=== PATIENT | male | born 1965 | race Caucasian/White ===

== ENCOUNTER 2024-07-23 14:53 | Outpatient (REF) | payer MEDICAID, SELFPAY ==
--- OUTSIDE RECORDS SUMMARY | 2024-07-23 15:59 | XMS_ITS | Encounter Summary ---
Author Organization [facility] [employer] Address [address] [facility] 7t [place] [address] Care Team Providers Care Signing Agent Name Role Phone Vinh Braden CNP Primary Care Provider [phone] Reason for Visit * Reason Onset Date Comments CHART PREP 07/22/2024 Encounter Details Date Type Department Care Team ([facility] st Contact Info) Description 07/22/2024 Telephone [facility] [address] [place], [place] [phone] Vinh Braden CNP [address] [place], [place] [phone] CHART PREP Social History Tobacco Use Types Packs/Day Years Used Date Smoking Tobacco: Former Cigarettes Smokeless Tobacco: Never Comments:Pt smoked for 45 ye ars and quit 3 years ago Alcohol Use Standard Drinks/Week Comments Yes 1 (1 standard drink = 0.6 oz pure alcohol) 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 I have evelia jose m 04/16/[address] you li ve. Do you have problems with any of the following? None of the above 04/16/2024 Food Insecurity Answer Date Recorded Within the past 12 months, y ou worried that your food would run out before you got money to buy more: Never True 04/16/2024 Within the past 12 months,th e food you bought just didn't last and you didn't have enough money to get more: Never True Transportation Answer Date Recorded In the past 12 months, has l ack of transportation kept you from medical appts, meetings, work or from getting things needed for daily living? No 04/16/2024 Utilities Answer Date Recorded In the past 12 months, has t he electric, gas, oil or water [employer] threatened to shut off services in your home? No 04/16/2024 Internet Access Answer Date Recorded Internet Access Q1 Yes 04/16/2024 Internet Access Q2 Not on file 04/16/2024 Sex and Gender Information Value Date Recorded Sex Assigned at Male 04/22/2024 8:34 AM EST Legal Sex Male 1:52 PM EST Gender Identity Male 04/22/2024 8:34 AM EST Sexual Orientation Straight 04/22/2024 9: 29 AM EST documented as of this encounter Miscellaneous Notes * Telephone Encounter - Leonard Plummer MA - 07/22/2024 11:59 AM EDT Chart Prep Labs: not done 05/02/24 T/C to pt for a reminder of labs pt okay Images: not applicable Referrals: not applicable Vaccines due: not applicable Screenings: not applicable Overdue care gaps: SBIRT, PHQ-9, HAROON-7, and Disability screen documented in this encounter Plan of Treatment Not on file documented as of this encounter Visit Diagnoses Not on filedocumented in this encounter Care Teams Signing Agent Relationship Specialty Start Date End Date Vinh Braden CNP [address] [place] [id number] PCP - General Family Medicine 05/02/24 documented as of this encounter
--- OUTSIDE RECORDS SUMMARY | 2024-07-23 15:59 | XMS_ITS | Encounter Summary ---
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 I have evelia salguero 04/16/[address] you li [...] t he electric, gas, oil or water company threatened to shut off services in your [...] AM EST documented as of this encounter Plan of Treatment Not on file documented as of this encounter Visit Diagnoses Not on filedocumented in this encounter Care Teams Mammalogy Teacher Relationship Specialty Start Date End Date Vinh Braden CNP [address] [place] [id number] PCP - General Family Medicine 05/02/24 documented as of this encounter
--- OUTSIDE RECORDS SUMMARY | 2024-07-23 15:59 | XMS_ITS | Encounter Summary ---
Author Organization [employer] Address [address] [facility] 7t [place] [address] Care Team Providers Care Government Affairs Researcher Name Role Phone Vinh Braden CNP Primary Care Provider [phone] Reason for Referral * PFT (Routine) - Pending Review Specialty Diagnoses / Procedures Referred By Gerber morales Referred To Contact Diagnoses Chronic obstructive pulmonary disease, unspecified COPD type (CMS/HCC) Procedures Pulmonary Function Test Vinh Braden CNP [address] [place] [address] Phone: tel: fax: Referral ID Status Reason Start Date Expiration Date V isits Requested Visits Authorized [id number] Pending Review 07/23/2024 07/23/2025 1 1 Reason for Visit * Reason Comments Follow-up Encounter Details Date Type Department Care Team ([facility] st Contact Info) Description 07/23/2024 3:30 PM EDT Office Visit 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 Housing Stability Answer [...] AM EST documented as of this encounter Last Filed Vital Signs Vital Sign Reading Time Taken Comments Blood Pressure 113/70 07/23/2024 3:38 PM EDT Pulse 84 07/23/2024 3:38 PM EDT Temperature 36.5 ??C (97.7 ??F) 07/23/2024 3:38 PM ED T Respiratory Rate 21 07/23/2024 3:38 PM EDT Oxygen Saturation - - Inhaled Oxygen Concentration - - Weight 62.4 kg (137 lb 9.6 oz) 07/23/2024 3:38 P M EDT Height 177.8 cm (5' 10 ) 07/23/2024 3:38 PM EDT Body Mass Index 19.74 07/23/2024 3:38 PM EDT documented in this encounter Plan of Treatment Scheduled Orders Name Type Priority Associated Diagnoses Orde r Schedule [id number] Lab Routine Chronic obstructive pulmonary disease, unspecified COPD type (CMS/HCC) Expected: 07/23/2024 (Approximate), Expires: 07/23/2025 Pulmonary Function Test PFT Routine Chronic obstructive pulmonary disease, unspecified COPD type (CMS/HCC) Expected: 07/23/2024, Expires: 01/23/2025 documented as of this encounter Visit Diagnoses Diagnosis Chronic obstructive pulmonary disease, unspecified COPD type (CMS/HCC)- Primary documented in this encounter Care Teams Government Affairs Researcher Relationship Specialty Start Date End Date Vinh Braden CNP [address] [place] [id number] PCP - General Family Medicine 05/02/24 documented as of this encounter
--- OUTSIDE RECORDS SUMMARY | 2024-07-23 15:59 | XMS_ITS | Clinical Summary ---
Author Organization [employer] Address [address] [facility] 7[address] [place] [address] Care Team Providers Care Harness Preparer Name Role Phone Vinh Braden LEE ANN Primary Care Provider [phone] Allergies No known active allergies Medications Eliquis 5 MG tablet Take 1 tablet by mouth 2 times daily. 10/05/19 24 Active aspirin 81 MG EC tablet Take 81 mg by mouth Once per day. 06/27/19 18 Active Farxiga 10 MG Take 1 tablet by mouth Once per day. 03/05/20 24 Active Inspra 25 MG tablet Take 1 tablet by mouth Once per day. 01/23/20 24 Active metoprolol succinate XL (Toprol-XL) 50 MG 24 hr tablet Take 3 tablets by mouth Once per day. 02/06/20 24 Active Entresto 24-26 MG tablet Take 1 tablet by mouth 2 times daily. 01/23/20 24 Active Umeclidinium [place] (Incruse Ellipta) 62.5 MCG/ACT aerosol powderIndicatio ns:Chronic obstructive pulmonary disease, unspecified COPD type (CMS/HCC) Inhale 1 Act (62.5 mcg) Once per day. Take 1 puff by inhalation daily. 30 each 05/02/19 25 Active albuterol 108 (90 Base) MCG/ACT inhalerIndicati ons:Chronic obstructive pulmonary disease, unspecified COPD type (CMS/HCC) Inhale 2 puffs every 6 (six) hours if needed for wheezing. 18 g 07/24/19 25 026 Active albuterol 108 (90 Base) MCG/ACT inhalerIndicati ons:Chronic obstructive pulmonary disease, unspecified COPD type (CMS/HCC) Inhale 2 puffs every 4 (four) hours if needed for wheezing. 18 g 05/02/19 025 Discontinued Active Problems Problem Noted Date Diagnosed Date CAD in [place] artery 05/02/2024 HTN (hypertension) 05/02/2024 Chronic obstructive pulmonary disease 05/02/2024 Assessment & Plan (05/02/2024 10:16 AM EST): Pt 02 sat stable at 95% today, no acute exacerbation today, no increased WOB, SOB, cough. Pt will continue with albuterol prn, will start pt on daily incruse ellipta, instructions for use reviewed and administered handout with insructions F/u in 3 months for chronic disease management, advised pt to RTC sooner for any new or worsening conditions Healthcare maintenance 05/02/2024 Assessment & Plan (05/02/2024 10:18 AM EST): Pt declines all due vaccinations today Pt declines colorectal cancer screening today Advised pt that they are elgible for lung cancer screening, pt declines today but says he will do his research and think about it for next appt. Advised pt to have routine eye exam, pt declines today. Ordered routine blood work-see orders, declines HIV and Hep c screening today Pt plans to follow up with cardiology next week F/u in 3 months for chronic disease management Disease due to severe acute respiratory syndrome coronavirus 2 (SARS-CoV-2) 02/14/2022 Overview (05/02/2024): Problem added by Discern Expert Non-ST elevation myocardial infarction (NSTEMI) 01/22/2013 Encounters Date Type Department Care Team Description 07/23/2024 3:30 PM EDT Office Visit [facility] [address] [place] [phone] Vinh Braden CNP Chronic obstructive pulmonary disease, unspecified COPD type (CMS/HCC) (Primary Dx) 07/23/2024 Travel 07/22/2024 Telephone [facility] [address] [place] [address] Vinh Braden CNP CHART PREP 07/10/2024 Patient Outreach [facility] [address] [place] [address] Vinh Braden CNP Pre-visit Planning ( SDOH Will need to be completed In office. ) 07/03/2024 Telephone [facility] [address] [place] [address] Vinh Braden CNP Chart Prep 07/01/2024 Telephone [facility] [address] [place] [address] Vinh Braden CNP May Recall 05/30/2024 Population Health Risk Score [facility] () Department [address] [place] [id number] Provider, Population Health Generic 05/12/2024 Telephone [facility] [address] [place] [address] Vinh Braden CNP Prior Authorization (Albuterol inhaler) 05/02/2024 9:30 AM EST Office Visit [facility] [place] [address] Vinh Braden CNP Chronic obstructive pulmonary disease, unspecified COPD type (CMS/HCC) (Primary Dx); Healthcare maintenance from Last 3 Months Immunizations Name Administration Dates Next Due Pfizer Covid-19 Vaccine 12+ 12/21/2020 Social History Tobacco Use Types Packs/Day Years Used Date Smoking Tobacco: Former Cigarettes Smokeless Tobacco: Never Tobacco Cessation:Counseling Given: Not Answered Comments:Pt smoked for 45 years and quit 3 years ago Alcohol Use Standard Drinks/Week Comments Yes 1 (1 standard drink = 0.6 oz pure alcohol) 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, 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 Housing Stability [...] Orientation Straight 04/22/2024 9: 29 AM EST Last Filed Vital Signs Vital Sign Reading Time Taken Comments Blood Pressure 113/70 07/23/2024 3:38 PM EDT Pulse 84 07/23/2024 3:38 PM EDT Temperature 36.5 ??C (97.7 ??F) 07/23/2024 3:38 PM ED T Respiratory Rate 21 07/23/2024 3:38 PM EDT Oxygen Saturation 95% 05/02/2024 9:17 AM EST Inhaled Oxygen Concentration - - Weight 62.4 kg (137 lb 9.6 oz) 07/23/2024 3:38 P M EDT Height 177.8 cm (5' 10 ) 07/23/2024 3:38 PM EDT Body Mass Index 19.74 07/23/2024 3:38 PM EDT Plan of Treatment Health Maintenance Due Date Last Done Comments CT Colonography 1963 Colonoscopy 1963 Depression Screening 1963 FIT DNA/Cologuard 1963 FIT 1963 FOBT 1963 Lipid Panel 1963 Sigmoidoscopy 1963 Alcohol/Substance Use Screening 1975 Influenza Vaccine (#1) 2024 Postp oned from 11/18/2023 (Patient Refused) SDOH Screening 04/16/2025 04/16/2024 COVID-19 Vaccine (3 - 2023-2 5 season) 2025 12/21/2020, 11/29/2020 Postponed from 11/18/2023 (Patient Refused) Colorectal Cancer Screening 05/02/2025 Postponed from 1963 (Patient Refused) DTaP/Tdap/Td Vaccines (1 - Tdap) 05/02/2025 Postponed from 11/21 (Patient Refused) HIV Screening 05/02/2025 Postponed from 1963 (Patient Refused) Hepatitis C Screening 05/02/2025 Postpo romana from 11/21/1981 (Patient Refused) Pneumococcal Vaccine: 50+ Years (1 of 2 - PCV) 05/02/2025 Postponed from 07/1982 (Patient Refused) RSV Patients and Patients Aged 60 years or older (1 - Risk 60-74 years 1-dose series) 05/02/2025 Postponed from 11/21 (Patient Refused) Tobacco Screening 05/02/2025 05/02/2024 Zoster Vaccines (1 of 2) 05/02/2025 Pos tponed from 11/21/2013 (Patient Refused) HIB Vaccines Aged Out No longer eligi ble based on patient's age to complete this topic HPV Vaccines Aged Out No longer eligi ble based on patient's age to complete this topic Hepatitis A Vaccines Aged Out No long er eligible based on patient's age to complete this topic Hepatitis B Vaccines Aged Out No long er eligible based on patient's age to complete this topic IPV Vaccines Aged Out No longer eligi ble based on patient's age to complete this topic Meningococcal Vaccine Aged Out No [employer] eligible based on patient's age to complete this topic RSV under 20 months Aged Out No longe r eligible based on patient's age to complete this topic Rotavirus Vaccines Aged Out No longer eligible based on patient's age to complete this topic Insurance [facility] C3 Care Teams Harness Preparer Relationship Specialty Start Date End Date Vinh Braden CNP [address] [place] [phone] PCP - General Family Medicine 05/02/24
[2024-07-23 16:12] LABS: MANUAL DIFF FLAG NO
[2024-07-23 16:21] LABS: Basophils Absolute Auto 0.1 X10*3/uL (0.0-0.2); Basophils Percent Auto 1.2 % (0-2); Eosinophils Absolute Auto 0.5 X10*3/uL (0.0-0.4); Eosinophils Percent Auto 4.4 % (0-4); Hematocrit 42.5 % (42.0-52.0); Imm Gran Abs Auto 0.04 X10*3/uL (0.00-0.03); Imm Gran Pct Auto 0.4 % (0.0-0.4); Lymphocytes Absolute Auto 3.7 X10*3/uL (1.2-4.9); Lymphocytes Percent Auto 32.8 % (20-40); Mean Corpuscular HGB Conc 35.3 g/dl (31.0-36.0); Mean Corpuscular Hemoglobin 33.3 pg (27.0-33.0); Mean Corpuscular Volume 94.2 fL (80.0-98.0); Mean Platelet Volume 11.5 fL (9.4-12.4); Monocytes Absolute Auto 0.7 X10*3/uL (0.1-1.2); Monocytes Percent Auto 6.2 % (2-11); Neutrophils Absolute Auto 6.2 x10*3/uL (2.0-8.3); Platelet Count 250 X10*3/uL (160-400); Red Blood Count 4.51 X10*6/uL (4.60-5.80); Red Cell Distribution Width 12.6 % (11.0-16.0); White Blood Count 11.2 X10*3/uL (4.8-10.8)
[2024-07-23 16:28] LABS: Estimated Average Glucose 91 mg/dL; Hemoglobin A1C 115.0959 umol/L; Hemoglobin A1c % 4.8 % (<6.0); Total Hemoglobin (HGBA1C) 3939.9863 umol/L
[2024-07-23 16:46] LABS: Anion Gap 13 (12-20); Blood Urea Nitrogen 18 mg/dL (9-16); Calcium 9.5 mg/dL (8.4-10.2); Carbon Dioxide 22 mmol/L (22-29); Chloride 107 mmol/L (96-108); Cholesterol 122 mg/dL (<200); Estimated Glomerular Filt Rate > 60; Glucose Random 97 mg/dL (60-115); HDL Cholesterol 47 mg/dL (>40); Potassium 4.1 mmol/L (3.3-5.1); Sodium 138 mmol/L (135-145); Triglycerides 427 mg/dL (<150)
== END 2024-07-23 14:54 | disposition home or self-care (01) ==
LOC: HO.HHCL 14:53
DX: Z00.00 Encounter for general adult medical examination without abnormal findings (principal)
CPT/HCPCS: 36415; 80048; 80061; 83036; 85025

== ENCOUNTER 2024-12-25 12:52 | Outpatient (REF) | payer MEDICARE, SELFPAY ==
--- NOTE | 2024-12-25 | PFT_ITS ---
Flows: FEV1: 79 % of predicted at 2.46 L FVC: 134 % of predicted at 5.33 L FEV1/FVC: 46 % Bronchodilator response: Present Volumes: Total lung capacity: 122 % of predicted at 7.70 L Residual volume: 152 % of predicted at 2.99 L Slow vital capacity: 107 % of predicted at 4.71 L Expiratory reserve volume: 156 % of predicted at 1.68 L Diffusion capacity: Mildly decreased. Impression: Moderate obstructive ventilatory defect with positive bronchodilator response. Increased total lung capacity suggests hyperinflation. Increased residual volume suggests air trapping. Decreased diffusion capacity suggests emphysema. MTDD
[2024-12-25 13:52] VITALS: PULSE 81; O2SAT 98
== END 2024-12-25 12:53 | disposition home or self-care (01) ==
LOC: HO.RESP 12:52
DX: J44.9 Chronic obstructive pulmonary disease, unspecified (principal)
CPT/HCPCS: 94010; 94640; 94727; 94729

== ENCOUNTER → 2024-12-25 13:12 | Outpatient (BNV) | payer MEDICARE, SELFPAY | PROVIDERS: Visit Provider Internal Medicine Pulmonary Disease | DX: J98.4 Other disorders of lung (principal) | CPT/HCPCS: 94060; 94727; 94729 ==